=== PATIENT | male | born 1990 | race Caucasian/White ===

== ENCOUNTER 2024-01-15 23:26 | Emergency (ER) | payer SELFPAY ==
[~2024-01-15] VITALS: Ht 172.7 cm; Wt 85.7 kg
[2024-01-15 23:46] VITALS: TEMP 98.5; O2SAT 97
[2024-01-16] MEDS: CEPHALEXIN 250MG CAPSULE PO ONE (01:30)
[2024-01-16] MEDS ORDERED: TOPUD PO (01:38)
[2024-01-16] MEDS ORDERED: HYDR-4001 MT (01:38)
[2024-01-16] MEDS ORDERED: IBUP-2029 MT (01:38)
[2024-01-16] MEDS ORDERED: CEPH500T MT (01:38)
[2024-01-16] MEDS: TETANUS, DIPHTHERIA, PERTUSSIS VAC/PF 0.5ML (>10YR OLD) IM ONE (02:17)
[2024-01-16] MEDS: HYDROCODONE/ACETAMINOPHEN 5/325MG TABLET PO ONE (02:18)
[2024-01-16 02:24] VITALS: BP 142/88; PULSE 122; RESP 18
[2024-01-16] MEDS: IBUPROFEN 600MG TABLET PO ONE (02:24)
== END 2024-01-16 02:44 | disposition home or self-care (01) ==
LOC: ER 23:26
DX: S61.011A Laceration without foreign body of right thumb without damage to nail, initial encounter (principal); X58.XXXA Exposure to other specified factors, initial encounter; Y93.89 Activity, other specified; Y92.89 Other specified places as the place of occurrence of the external cause; Y99.8 Other external cause status
CPT/HCPCS: 12001; 99284; 73130; 90471; Z7610